=== PATIENT | female | born 1950 | race Caucasian/White ===

== ENCOUNTER 2018-05-26 09:00 | Inpatient (IN) | payer MEDICARE, OTHER ==
[2018-06-05] MEDS ORDERED: FAMOTIDINE 20MG TABLET PO ONE (06:00)
[2018-06-05] MEDS ORDERED: MECLIZINE 25 MG TABLET PO ONE (06:00)
[2018-06-05] MEDS ORDERED: CEFAZOLIN 2 Gram 2 GM/50 ML BAG IVPB ONE (06:00)
[2018-06-05] MEDS ORDERED: METOCLOPRAMIDE 10 MG TABLET PO ONE (06:00)
[2018-06-05] MEDS ORDERED: ACETAMINOPHEN 1,000 MG/100 ML BTL IV ONE (06:00)
[2018-06-05] MEDS ORDERED: VANCOMYCIN HCL 1,000 MG in DEXTROSE 5 % IN WATER 250 ML IVPB ONE ×2 (06:00)
[2018-06-05 07:53] LABS: ABO GROUP O; RH TYPE POSITIVE
[2018-06-05] MEDS ORDERED: ZOLPIDEM TARTRATE 5 MG TABLET PO PRN (08:06)
[2018-06-05] MEDS ORDERED: METOCLOPRAMIDE HCL 10 MG/2 ML VIAL IVP PRN (08:06)
[2018-06-05] MEDS ORDERED: ACETAMINOPHEN W/ CODEINE 300MG/30MG TABLET PO PRN ×2 (08:06)
[2018-06-05] MEDS ORDERED: DIPHENHYDRAMINE HCL 25 MG CAPSULE PO PRN (08:06)
[2018-06-05] MEDS ORDERED: MAGNESIUM HYDROXIDE 30 ML UDC PO PRN (08:06)
[2018-06-05] MEDS ORDERED: ACETAMINOPHEN W/ CODEINE 300MG/60MG TABLET PO PRN ×2 (08:06)
[2018-06-05] MEDS ORDERED: ONDANSETRON HCL IV 4 MG/2 ML VIAL IVP PRN (08:06)
[2018-06-05] MEDS ORDERED: KETOROLAC 30 MG/ML VIAL IVP PRN ×2 (08:06)
[2018-06-05] MEDS ORDERED: TRAMADOL HCL 50 MG TABLET PO PRN (08:06)
[2018-06-05] MEDS ORDERED: HYDROCODONE/APAP 5/325MG TABLET PO PRN ×2 (08:06)
[2018-06-05] MEDS ORDERED: NALOXONE 0.4 MG/1 ML VIAL IVP PRN (08:06)
[2018-06-05] MEDS ORDERED: AL HYDROX/MAG HYDROX 30ML UD PO PRN (08:06)
[2018-06-05] MEDS ORDERED: HYDROMORPHONE HCL 2 MG/ML VIAL IM PRN ×2 (08:06)
[2018-06-05] MEDS ORDERED: BISACODYL 10 MG SUPP RC PRN (08:06)
[2018-06-05] MEDS ORDERED: PROMETHAZINE HCL 12.5 MG in 0.9 % SODIUM CHLORIDE 100ML 50 ML IVPB PRN (08:06)
[2018-06-05] MEDS ORDERED: HYDROCODONE/APAP 7.5/325MG TABLET PO PRN (08:06)
[2018-06-05] MEDS ORDERED: DEXTROSE 5 % AND 0.9 % NACL 1,000 ML IV PRN (10:30)
[2018-06-05] MEDS ORDERED: PATIENT OWN MED: VENTOLIN HFA INH PRN (10:37)
--- NOTE | 2018-06-05 13:43 | Rehab Evaluation ---
Patient Information - Patient Information Diagnosis: R hip OA Ordered Treatment: PT Evaluate and Treat Status: Initial Evaluation Surgery: Yes (R THR) Date of Surgery: 06/05/18 Past Medical/Surgical Hx: PAST MEDICAL/SURGICAL HISTORY Past Surgical History back sx x's 2 astrid T and A heart cath several toe removal hyst 2 cardiac stents 2000 PMH - Respiratory Hx Respiratory Disorders Yes Hx Asthma Yes: well controlled with inhaler uses rescue inhaler very rare Hx Bronchitis Yes Hx Pneumonia Yes Hx of SOB Yes: occassionally PMH - Cardiovascular Hx Cardiovascular Disorders Yes Hx Abnormal EKG Yes Hx Heart Attack Yes Hx Hypertension Yes Hx Coronary Artery Disease Yes Hx Coronary Stent Yes: 2000 Hx Heart Murmur Yes Hx of Mitral Valve Prolapse Yes Exercise Tolerance Fair Comment: hyperlipidemia PMH - Neuro Hx Neurological Disorders Yes Hx Neuropathy Yes: right leg PMH - GI Hx Gastrointestinal Disorders Yes Hx Gastroesophageal Reflux Yes: on meds good control PMH - Hx Genitourinary Disorders No PMH - Endocrine Hx Endocrine Disorders Yes Comment: hypoglycemic PMH - Musculoskeletal Hx Musculoskeletal Disorders Yes Hx Arthritis Yes PMH - Psych Hx Psychiatric Problems Yes Hx Anxiety Yes Hx Depression Yes PMH - Hematology/Oncology Hx Hematology/Oncology Yes Disorders Hx Cancer Yes: cervical Hx Chemotherapy No Hx Radiation Therapy No Premorbid Status: Detail (The patient was independent with all mobility prior to surgery.) Social History: Detail (The patient lives alone in a one story house with 3 steps at the enterance and 2 handrails. The bathroom is equipped with a walk in shower with a tub bench ,grab bars and an elevated toilet seat with grab bars. The patient has a standard walker, standard cane, commode and wheelchair.) Precautions: [place], Fall, Other (THR) - Time With Patient Total Time Spent With Patient (Min): 30 Treatment Procedures: Detail (Initial Evaluation, gait training) Subjective Information - Subjective Information Per Patient (The patient had complaints of back pain and shooting LE pain into her thigh. The patient did not rate her pain using 0-10 pain scale.) Objective Data - Mental Status Patient Orientation: Oriented x3 - Visual Perception Appears within normal limits for therapeutic activities - ROM Not within normal limits (The patient's R hip AROM is within total hip precautions. All other AROM is WNL.) - Strength/Tone Not within normal limits (The patient's R LE strength was not tested secondary to s/p surgery but is functional, the patient was able to lift R LE off the bed. The patient's L LE strength is WNL) - Bed Mobility Needs Assist (The patient was independent moving LE's, for supine to sit transfer but required use of trapeze and handrails to lift upper body.) - Transfers Independent (The patient was independent with sit to and from stand transfer.) - Balance Balance Sitting: Good Balance Standing: Good - Sensation Intact - Gait Detail (The patient ambulated with standard walker a distance of 48 feet x 1, WBAT on the R LE with supervision for safety and to handle equipment.) Therapy Assessment - Therapy Assessment Detail (The patient required assistance with bed mobility and supervision for safety with ambulation. Feel the patient will progress well with mobility.) Patient Education - Patient Education Teaching Topic: Precautions (The patient required verbal cues to recall THR precautions.) Response: Reinforcement Needed Teaching Method: Discussion Teaching Recipient: Patient Barriers To Learning: Age Related Problem List - Problem List Physical Therapy Problem List: Detail (1) Decreased R LE strength 2) Impaired ambulation due to THR) Goals - Goals Physical Therapy Goals: 1) The patient will be independent with THR HEP and demonstrate good understanding of THR precautions. 2) The patient will ambulate independently distances of 100 feet, WBAT on the R LE. 3) The patient will ambulate on stairs with supervsion for safety. Prognosis - Prognosis Good Plan - Plan Physical Therapy Plan: PT 1-3 sessions for gait training on levels and stairs and instruction in THR exercises.
[2018-06-05] MEDS: GABAPENTIN 300 MG CAPSULE PO SCH ×2 (13:45→22:04)
[2018-06-05] MEDS ORDERED: PROPOFOL 10 MG/ML VIAL IV ONE (14:00)
[2018-06-05] MEDS ORDERED: BUPIVACAINE 0.5% W/EPI MPF 30 ML VIAL IVP ONE (14:00)
[2018-06-05] MEDS ORDERED: KETAMINE HCL 100MG/1ML VIAL INJ ONE (14:00)
[2018-06-05] MEDS ORDERED: MIDAZOLAM HCL 2MG/2ML VIAL IV ONE (14:00)
[2018-06-05] MEDS ORDERED: BUPIVACAINE LIPOSOME 266MG/20ML VIAL IV ONE (14:00)
[2018-06-05] MEDS ORDERED: VANCOMYCIN HCL 1 GM VIAL IVPB ONE (14:00)
[2018-06-05] MEDS ORDERED: KETOROLAC 30 MG/ML VIAL IVP ONE (14:00)
[2018-06-05] MEDS ORDERED: TRANEXAMIC ACID 1,000 MG/10 ML ML IV ONE ×2 (14:00)
[2018-06-05] MEDS: VANCOMYCIN HCL 1,000 MG in DEXTROSE 5 % IN WATER 250 ML IVPB SCH ×2 (18:05)
--- NOTE | 2018-06-05 18:25 | Operative Note ---
DATE OF SURGERY: 06/05/2018 PREOPERATIVE DIAGNOSIS: END-STAGE RIGHT HIP ARTHROSIS. POSTOPERATIVE DIAGNOSIS: END-STAGE RIGHT HIP ARTHROSIS. PROCEDURE: RIGHT TOTAL HIP ARTHROPLASTY. SURGEON: KARRIE BAUTISTA M.D. ANESTHESIA: SPINAL. MERCEDEZ ROWELL CRNA. COMPLICATIONS: NONE. BLOOD LOSS: MINIMAL. OPERATIVE FINDINGS: [id number] HIP ARTHROSIS. COMPONENTS PLACED: 2 gm Vancomycin. Cement. [employer] cemented collared size 13 high-offset femoral stem component with a 32 +0 mm Oxinium femoral head component and a high-crosslinked 35 degree hooded polyethylene liner with a 50 mm three-hole reflection acetabular shell component with two screw caps, a centrally threaded screw cap, and the acetabular screw, 40 mm. INDICATION FOR OPERATION: This is a 68-year-old female who has had persistent pain and dysfunction in her hip joint for several years. She failed nonoperative treatment and is scheduled for a total hip arthroplasty. I explained the risks and benefits thoroughly in detail for her diagnosis and procedures including but not limited to infection, nerve injury, vessel injury, persistent pain, persistent numbness and tingling in her hip, leg length discrepancy, need for anticoagulation to prevent blood clots and risks associated with these medications and all of her questions were answered. Rehab and course were outlined and she agreed to proceed. PROCEDURE: The patient was brought into the O.R. and placed in the left lateral decubitus position. Her right hip and lower extremity were prepped and draped in the usual sterile fashion. It was prepped again with ChloraPrep after it was draped. Intraoperative time-out was performed. Next, a posterior approach was marked over the hip. We infiltrated with 0.5% Marcaine with Epinephrine, 2 gm tranexamic acid, and Exparel mixture. The skin and subcutaneous tissues were dissected down. The gluteal fascia was split longitudinally and the subgluteal plane was bluntly dissected. A self-retainer was brought in. I identified the sciatic nerve and this was carefully protected at all times. We released the short external rotators and then incised the capsule and released the capsule superiorly and inferiorly and dislocated the femoral head without difficulty. Next, then we resected the femoral head about 1.5 cm above the lesser trochanter , protecting the soft tissues with a Cobra retractor. Next, then we inserted the boxed osteotome. We then inserted the reamers and reamed up by 1 mm increments and then by power up to a size 13. We stopped there. We broached to 11 and calcar planed and then broached to 12, and then broached to 13. We had good fit and we planned on using a 13 cemented component here. Next, then attention was turned to the acetabulum. We released the capsule anteriorly. We placed an anterior retractor, a Hohmann, there. We placed a retractor inferiorly, an acetabular custom retractor and then had good exposure of the acetabulum. We removed and resected some of the capsule and labrum around the periphery. Next, we started reaming by hand working in 1 mm increments to a size 44 mm in 45 degrees of inclination and 20 degrees of anteversion until we reamed up to a size 49. We stopped there. We trialed a 50 and had a good fit and that was the size that we used. Next, we impacted down the real size 50 mm three-hole acetabular reflection shell component using the helicopter guide, again in the same inclination in 20 degrees of anteversion and 45 degrees inclination and tapped it down until it was flush medially. Next, we drilled the posterior superior central quadrant screw hole, drilled for the 40 mm screw and inserted the screw and had excellent purchase. Next, we placed the trial liner and did a trial reduction. The best combination for range of motion, stability, and limb lengths was with a standard 0 neck insert, high-offset stem. This allowed for flexion to 90 and internal rotation to 80 before the hip dislocated. We had good abductor tensioning and symmetric leg lengths and stability with extension in external rotation. Next, we dislocated the hip. We removed all trial components. We irrigated the acetabular shell copiously. We placed the two screw caps, the centrally threaded screw cap and impacted down the real high-crosslinked polyethylene liner with the pino in the posterior superior quadrant. We verified it was interlocked. Next, we mixed cement. We irrigated the femoral canal copiously. We placed a cement restrictor distally and injected the cement with 3rd generation cement technique. We removed the suction catheter and impacted down the real femoral stem, again in 15 degrees of anteversion until the collar was flush with the medial calcar. Once cement hardened, we cleaned and dried the trunnion and impacted down the real femoral head component. We re-reduced the hip. Final range of motion revealed the same. We irrigated copiously. We injected deep to superficial with our tranexamic acid , Exparel, and local mixture. She received IV tranexamic acid preoperatively and at the end of the procedure as well. We closed the gluteal fascia with running #2 Quill suture. We closed the skin deep with #2 Vicryl and #2-0 Vicryl and a sterile dressing was applied. This will be changed to a MONTRELL dressing prior to discharge to rehab, likely in three days. cc: Dr. Nanda Orr JOB NUMBER: [id number] MTDD
[2018-06-05] MEDS: TRAMADOL HCL 50 MG TABLET PO PRN (19:42)
[2018-06-05] MEDS: CITALOPRAM 20 MG TABLET PO SCH (22:04)
[2018-06-05] MEDS: HYDROCODONE/APAP 7.5/325MG TABLET PO PRN (22:06)
[2018-06-05] MEDS: RANITIDINE HCL 150 MG TABLET PO SCH (22:07)
[2018-06-05] MEDS: FERROUS SULFATE 325 MG TAB PO SCH (22:07)
[2018-06-05] MEDS: ATORVASTATIN 20 MG TABLET PO SCH (22:08)
[2018-06-05] MEDS: METOPROLOL SUCC 50 MG TABLET PO SCH (22:08)
[2018-06-05] MEDS: DOCUSATE SODIUM 100 MG CAPSULE PO SCH (22:08)
[2018-06-05] MEDS: LOSARTAN POTASSIUM 25 MG TABLET PO SCH (22:08)
[2018-06-05] MEDS: SYMBICORT INH SCH (22:35)
[2018-06-06] MEDS: GABAPENTIN 300 MG CAPSULE PO SCH ×3 (06:10→21:04)
[2018-06-06] MEDS: VANCOMYCIN HCL 1,000 MG in DEXTROSE 5 % IN WATER 250 ML IVPB SCH ×2 (06:14)
[2018-06-06] MEDS: TRAMADOL HCL 50 MG TABLET PO PRN (06:22)
[2018-06-06 06:32] LABS: HEMATOCRIT 34.9 % (35.0-47.0); HEMOGLOBIN 11.4 gm/dl (11.6-16.0)
--- NOTE | 2018-06-06 07:40 | RADIOLOGY REPORT ---
EXAM: CHEST, SINGLE VIEW HISTORY: ASYMPTOMATIC, REHAB PLACEMENT. TECHNIQUE: A single frontal view of the chest was obtained. Comparison: None. FINDINGS: The cardiac silhouette size is near the upper normal limits, likely prominent epipericardial fat pad. No focal pulmonary consolidation. No definable pleural fluid collection. No visible pneumothorax. IMPRESSION: NO ACUTE LUNG FINDINGS. JOB NUMBER: [id number] MTDD
[2018-06-06] MEDS: SYMBICORT INH SCH ×2 (10:03→21:51)
--- NOTE | 2018-06-06 10:11 | Physical Therapy Tx Note ---
Physical Therapy Tx Note - Treatment Note Total Time Spent With Patient: 10 Physical Therapy Tx Note: Detail (The patient was seen at the end of OT session. Patient ambulated from bathroom to bed 13 feet with CG of 2 due to frequent LOB and R LE giving out. The patient required moderate PA for sit to supine. The patient was unsteady this am and not safe to ambulate distances. Will check on patient this afternoon.) Physical Therapy Problem List: Detail (1) Decreased R LE strength 2) Impaired ambulation due to THR) Physical Therapy Goals: 1) The patient will be independent with THR HEP and demonstrate good understanding of THR precautions. 2) The patient will ambulate independently distances of 100 feet, WBAT on the R LE. 3) The patient will ambulate on stairs with supervsion for safety. Physical Therapy Plan: PT 1-3 sessions for gait training on levels and stairs and instruction in THR exercises.
[2018-06-06] MEDS: HYDROCHLOROTHIAZIDE 12.5 MG CAPSULE PO SCH (10:48)
[2018-06-06] MEDS: DOCUSATE SODIUM 100 MG CAPSULE PO SCH ×2 (10:48→21:43)
[2018-06-06] MEDS: PATIENT OWN MED: FLUTICASONE NASAL SPRAY INH SCH (10:48)
[2018-06-06] MEDS: FERROUS SULFATE 325 MG TAB PO SCH ×2 (10:48→21:41)
[2018-06-06] MEDS: RIVAROXABAN 10 MG TABLET PO SCH (10:48)
[2018-06-06] MEDS: CELECOXIB 100 MG CAPSULE PO SCH (10:48)
[2018-06-06] MEDS: ACETAMINOPHEN 325 MG TAB PO PRN (10:56)
--- NOTE | 2018-06-06 11:37 | Rehab Evaluation ---
Patient Information - Patient Information Diagnosis: R hip OA Ordered Treatment: OT Evaluate and Treat Status: Initial Evaluation Surgery: Yes (R THR) Date of Surgery: 06/05/18 Past Medical/Surgical Hx: PAST MEDICAL/SURGICAL HISTORY Past Surgical History back sx x's 2 astrid T and A heart cath several toe removal hyst 2 cardiac stents 2000 PMH - Respiratory Hx Respiratory Disorders Yes Hx Asthma Yes: well controlled with inhaler uses rescue inhaler very rare Hx Bronchitis Yes Hx Pneumonia Yes Hx of SOB Yes: occassionally PMH - Cardiovascular Hx Cardiovascular Disorders Yes Hx Abnormal EKG Yes Hx Heart Attack Yes Hx Hypertension Yes Hx Coronary Artery Disease Yes Hx Coronary Stent Yes: 2000 Hx Heart Murmur Yes Hx of Mitral Valve Prolapse Yes Exercise Tolerance Fair Comment: hyperlipidemia PMH - Neuro Hx Neurological Disorders Yes Hx Neuropathy Yes: right leg PMH - GI Hx Gastrointestinal Disorders Yes Hx Gastroesophageal Reflux Yes: on meds good control PMH - Hx Genitourinary Disorders No PMH - Endocrine Hx Endocrine Disorders Yes Comment: hypoglycemic PMH - Musculoskeletal Hx Musculoskeletal Disorders Yes Hx Arthritis Yes PMH - Psych Hx Psychiatric Problems Yes Hx Anxiety Yes Hx Depression Yes PMH - Hematology/Oncology Hx Hematology/Oncology Yes Disorders Hx Cancer Yes: cervical Hx Chemotherapy No Hx Radiation Therapy No Premorbid Status: Detail (The patient was independent with all mobility, meal prep, laundry, home mgmt and self cares prior to surgery. She has a friend that completes her yard work.) Social History: Detail (The patient lives alone in a one story house with basement and 3 steps at the entrance and 2 handrails. Her laundry is in the basement. The bathroom is equipped with a walk in shower with a tub bench , grab bars and an elevated toilet seat with grab bars. The patient has a standard walker, standard cane, commode, senior sales manager and wheelchair.) Precautions: [place], Fall, Other (THR precautions.) - Time With Patient Total Time Spent With Patient (Min): 60 Treatment Procedures: Detail (OT eval low complexity) Subjective Information - Subjective Information Per Patient Objective Data - Pain Pain Present: Yes (07/16) - Mental Status Patient Orientation: Oriented x3 (Pt was oriented but had short episodes of confusion.) - Visual Perception Appears within normal limits for therapeutic activities - ROM Within normal limits (Alfredo UE AROM WNL per observation.) - Strength/Tone Within normal limits (Alfredo UE strength WNL per observation.) - Coordination Appears within normal limits for therapeutic activities - Bed Mobility Needs Assist (Supine to sit Indly although pt had significant difficulty, sit to supine required mod assist due to fatigue and increased pain after evaluation.) - Transfers Needs Assist (Sit to stand from EOB and chair with min to mod assist, pt leans to the rear and required mod assist to maintain upright.) - Balance Balance Sitting: Good Balance Standing: Poor (Pt leans to the rear and requires mod assist to stay upright.) - Sensation Intact - Gait Detail (Pt ambulated 10 feet to bathroom and 10 feet to EOB with standard walker and min to mod assist.) - ADL's/IADL's Detail (Pt educated re: total hip precautions and use of equipment for modified LE dressing techniques. She required min to mod assist to don underpants, pants , socks with use of senior sales manager and sock aid, she required total assist to don tennis shoes due to fatigue and pain.) Therapy Assessment - Therapy Assessment Detail (Pt demonstrated decreased Ind with LE dressing, impaired functional mobility including bed mobility, transfers and ambulation needed to return home safely.) Problem List - Problem List Physical Therapy Problem List: Detail (1) Decreased R LE strength 2) Impaired ambulation due to THR) Occupational Therapy Problem List: Detail (1. Decreased Ind with modified LE dressing using adaptive equipment. 2. Impaired bed mobility, transfers and ambulation needed to return home.) Goals - Goals Physical Therapy Goals: 1) The patient will be independent with THR HEP and demonstrate good understanding of THR precautions. 2) The patient will ambulate independently distances of 100 feet, WBAT on the R LE. 3) The patient will ambulate on stairs with supervsion for safety. Occupational Therapy Goals: 1. Pt will be safe and Ind with use of adaptive equipment for modified LE dressing techniques. 2. Pt will be Ind with sit to stand transfers and ambulating household distances. Prognosis - Prognosis Good Plan - Plan Physical Therapy Plan: PT 1-3 sessions for gait training on levels and stairs and instruction in THR exercises. Occupational Therapy Plan: OT 2-4 times per week to address goals and problem list. Recommend short term rehab stay to ensure patients safety and Ind with return home.
--- NOTE | 2018-06-06 15:07 | Physical Therapy Tx Note ---
Physical Therapy Tx Note - Treatment Note Tolerated: Good Total Time Spent With Patient: 30 Physical Therapy Tx Note: Detail (The patient was in bed when PT arrived. The patient was able to acheive supine to and from sit independently with increased effort. The patient ambulated with standard walker 80 feet x 1 WBAT on the R LE with CG/supervision for safety with 2L of O2. The patient completed THR exercises including ankle pumps, gluteal sets, quad sets, hamstring sets, heel slides all for 3 - 5 reps. Patient was unable to complete hip abduction supine. The patient was able to complete mobility independently this pm.) Physical Therapy Problem List: Detail (1) Decreased R LE strength 2) Impaired ambulation due to THR) Physical Therapy Goals: 1) The patient will be independent with THR HEP and demonstrate good understanding of THR precautions. 2) The patient will ambulate independently distances of 100 feet, WBAT on the R LE. 3) The patient will ambulate on stairs with supervsion for safety. Physical Therapy Plan: PT 1-3 sessions for gait training on levels and stairs and instruction in THR exercises.
[2018-06-06] MEDS: HYDROCODONE/APAP 7.5/325MG TABLET PO PRN (21:05)
[2018-06-06] MEDS: RANITIDINE HCL 150 MG TABLET PO SCH (21:40)
[2018-06-06] MEDS: LOSARTAN POTASSIUM 25 MG TABLET PO SCH (21:40)
[2018-06-06] MEDS: ATORVASTATIN 20 MG TABLET PO SCH (21:40)
[2018-06-06] MEDS: CITALOPRAM 20 MG TABLET PO SCH (21:40)
[2018-06-06] MEDS: METOPROLOL SUCC 50 MG TABLET PO SCH (21:41)
[2018-06-07] MEDS: HYDROCODONE/APAP 7.5/325MG TABLET PO PRN ×3 (02:21→21:47)
[2018-06-07] MEDS: GABAPENTIN 300 MG CAPSULE PO SCH ×3 (06:16→21:46)
[2018-06-07 06:52] LABS: HEMATOCRIT 32.6 % (35.0-47.0); HEMOGLOBIN 10.6 gm/dl (11.6-16.0)
[2018-06-07] MEDS: RIVAROXABAN 10 MG TABLET PO SCH (09:09)
[2018-06-07] MEDS: CELECOXIB 100 MG CAPSULE PO SCH (09:09)
[2018-06-07] MEDS: FERROUS SULFATE 325 MG TAB PO SCH ×2 (09:09→21:47)
[2018-06-07] MEDS: PATIENT OWN MED: FLUTICASONE NASAL SPRAY INH SCH (09:09)
[2018-06-07] MEDS: HYDROCHLOROTHIAZIDE 12.5 MG CAPSULE PO SCH (09:09)
[2018-06-07] MEDS: DOCUSATE SODIUM 100 MG CAPSULE PO SCH ×2 (09:09→21:48)
[2018-06-07] MEDS: LIDOCAINE 5% PATCH TOP SCH (11:00)
[2018-06-07] MEDS: SYMBICORT INH SCH (12:00)
--- NOTE | 2018-06-07 14:15 | Physical Therapy Tx Note ---
Physical Therapy Tx Note - Treatment Note Tolerated: Good Total Time Spent With Patient: 20 Physical Therapy Tx Note: Detail (Patient states right buttock feeling much better this afternoon, but still painful. Patient transferred supine to sit independently. Patient transferred sit to and from stand SBA x1. Patient ambulated 112 feet with standard walker SBA x1. Patient transferred sit to supine independently. Patient tolerated treatment well. Patient declined further exercises. Patient was left supine in bed with call light within reach. ) Physical Therapy Problem List: Detail (1) Decreased R LE strength 2) Impaired ambulation due to THR) Physical Therapy Goals: 1) The patient will be independent with THR HEP and demonstrate good understanding of THR precautions. 2) The patient will ambulate independently distances of 100 feet, WBAT on the R LE. 3) The patient will ambulate on stairs with supervsion for safety. Prognosis: Good Physical Therapy Plan: PT 1-3 sessions for gait training on levels and stairs and instruction in THR exercises.
[2018-06-07] MEDS: TRAMADOL HCL 50 MG TABLET PO PRN (20:12)
[2018-06-07] MEDS: RANITIDINE HCL 150 MG TABLET PO SCH (21:45)
[2018-06-07] MEDS: LOSARTAN POTASSIUM 25 MG TABLET PO SCH (21:46)
[2018-06-07] MEDS: ATORVASTATIN 20 MG TABLET PO SCH (21:46)
[2018-06-07] MEDS: CITALOPRAM 20 MG TABLET PO SCH (21:48)
[2018-06-07] MEDS: METOPROLOL SUCC 50 MG TABLET PO SCH (21:48)
[2018-06-07] MEDS ORDERED: REMOVE PATCH 1 EACH MISC TD SCH (22:00)
[2018-06-08] MEDS: HYDROCODONE/APAP 7.5/325MG TABLET PO PRN ×2 (02:46→16:45)
[2018-06-08] MEDS: SYMBICORT INH SCH ×2 (05:39→09:46)
[2018-06-08] MEDS: GABAPENTIN 300 MG CAPSULE PO SCH ×2 (07:05→15:36)
[2018-06-08] MEDS: FERROUS SULFATE 325 MG TAB PO SCH (10:37)
[2018-06-08] MEDS: DOCUSATE SODIUM 100 MG CAPSULE PO SCH (10:37)
[2018-06-08] MEDS: HYDROCHLOROTHIAZIDE 12.5 MG CAPSULE PO SCH (10:37)
[2018-06-08] MEDS: RIVAROXABAN 10 MG TABLET PO SCH (10:37)
[2018-06-08] MEDS: CELECOXIB 100 MG CAPSULE PO SCH (10:37)
[2018-06-08] MEDS: PATIENT OWN MED: FLUTICASONE NASAL SPRAY INH SCH (10:38)
[2018-06-08] MEDS: LIDOCAINE 5% PATCH TOP SCH (10:38)
[2018-06-08] MEDS: ACETAMINOPHEN 325 MG TAB PO PRN (12:40)
[2018-06-09 23:42] LABS: ANTIBODY SCREEN NEGATIVE (NEGATIVE)
== END 2018-06-08 17:15 | DRG 470 ==
LOC: MEDSURG 06-05 05:42
PROVIDERS: ADMIT Orthopaedic Surgery; ATTEND Orthopaedic Surgery
PROC: 0SR9069 Replacement of Right Hip Joint with Oxidized Zirconium on Polyethylene Synthetic Substitute, Cemented, Open Approach (ICD-10-PCS; principal; 2018-06-05 08:00)
DX: M16.11 Unilateral primary osteoarthritis, right hip (principal); J44.9 Chronic obstructive pulmonary disease, unspecified; I10 Essential (primary) hypertension; E78.00 Pure hypercholesterolemia, unspecified; K21.9 Gastro-esophageal reflux disease without esophagitis; M19.90 Unspecified osteoarthritis, unspecified site
CPT/HCPCS: 71045; 85014; 85018; 86850; 86900; 86901; 94640; 94761; 97110; 97530; C1776; J1885; J3490; J7042; J7060